=== PATIENT | male | born 1990 | race Caucasian/White ===

== ENCOUNTER 2018-04-05 17:04 | Emergency (ER) | payer OTHER ==
[~2018-04-05] VITALS: Ht 167.6 cm; Wt 104.3 kg
[2018-04-05 17:28] VITALS: BP 121/75
--- NOTE | 2018-04-05 20:16 | ED GENERAL ADULT ---
History of Present Illness General Chief Complaint: Laceration Procedure Stated Complaint: +LAC BETWEEN THUMB AND INDEX, NOT UTD TETANUS Source: patient Exam Limitations: no limitations Vital Signs & Intake/Output Vital Signs & Intake/Output Vital Signs Date Time Temp Pulse Resp B/P B/P Pulse O2 O2 Flow FiO2 Mean Ox Delivery Rate 04/05 1951 Room Air 04/05 1728 97.4 74 16 121/75 94 Room Air ED Intake and Output 04/06 0000 04/05 1200 Intake Total Output Total Balance Patient 230 lb Weight Weight Reported by Patient Measurement Method Allergies Coded Allergies: No Known Allergies (05/03/17) Reconcile Medications No Known Home Medications Triage Note: PT TO ED S/P CUTTING L HAND WITH KNIFE WHILE "BUTCHERING PIG" TETANUS NOT UP TO DATE. BANDAGE IN PLACE ON ARRIVAL TO TRIAGE WOUND NOT VISUALIZED. PER PATIENT "LACERATION IS BETWEEN THUMB AND INDEX FINGER. Triage Nurses Notes Reviewed? yes Onset: Abrupt Duration: hour(s): Timing: single episode today HPI: 27-year-old otherwise healthy male presenting with a laceration his left hand sustained 2-3 hours prior to arrival. Patient reports that he cut his hand with a knife while butchering a pig and a pig roast. Denies numbness or paresthesias. Unsure of his last tetanus. (Mery Gottlieb) Past History Travel History Traveled to [place] past 21 day No Medical History Any Pertinent Medical History? 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 No (Mery Gottlieb) Review of Systems Review of Systems Constitutional: Reports: no symptoms. EENTM: Reports: no symptoms. Respiratory: Reports: no symptoms. Cardiovascular: Reports: no symptoms. GI: Reports: no symptoms. Genitourinary: Reports: no symptoms. Musculoskeletal: Reports: no symptoms. Skin: Reports: see HPI. Neurological/Psychological: Reports: no symptoms. Hematologic/Endocrine: Reports: no symptoms. Immunologic/Allergic: Reports: no symptoms. All Other Systems: Reviewed and Negative (Mery Gottlieb) Physical Exam Physical Exam General Appearance: well developed/nourished, no apparent distress, alert, awake Comments: Gen.: Well-nourished, well-developed, no acute distress. Head: Normocephalic, atraumatic. Eyes: Normal inspection bilaterally Ears: Normal inspection bilaterally Nose: Normal inspection Neck: Normal inspection Lungs: clear to auscultation bilaterally, normnal breath sounds Heart: regular rate and rhythm Abdomen: soft and non-tender HAND: Left hand Inspection: Approximately 1 inch laceration to the webspace between the left thumb and left index finger Palpation: Tender palpation at the wound edges ROM: Unrestricted range of motion at all MCPs/PIPs/DIPs and IP joint Sensation: intact to median/radial/ulnar nerves Motor strength: 5/5 with digit flexion, extension, interosseous strength, and hand reheater strength Cap refill: <2 seconds Pulse: 2+ radial pulse Neurologic: alert and oriented x3, steady gait Skin: warm and dry Psychiatric: Normal mood and affect, no apparent delusions or hallucinations, behavior appropriate Core Measures ACS in differential dx? No CVA/TIA Diagnosis: No Sepsis Present: No Sepsis Focused Exam Completed? No (Mery Gottlieb) Progress Differential Diagnoses I considered the following diagnoses in my evaluation of the patient: [ Laceration versus foreign body, low concern for tendon injury versus nerve is vascular injury versus fracture] Plan of Care: Current Medications Sig/Clare Start time Last Medication Dose Stop Time Status Admin Lidocaine 20 ML ONCE ONE 04/05 2000 UNVr 04/05 (Lidocaine 1%) 04/05 Tetanus/Diphtheria 0.5 ML ONCE ONE 04/05 2000 UNVr 04/05 Toxoids Adsorbed 04/05 (Decavac) Wound repaired as described in the procedure note. Tetanus updated. Counseled on wound care and strict return precautions. Initial ED EKG: none (Mery Gottlieb) Departure Departure Disposition: HOME OR SELF CARE Condition: Stable Clinical Impression Primary Impression: Hand laceration Referrals: Unknown (PCP/Family) Additional Instructions: Keep the wound clean and dry. The Steri-Strips will gradually fall off in the next 7-10 days. Do not pick at them. Return to the emergency department 7 days for suture removal. Return to the emergency department sooner for any new or worsening symptoms. Departure Forms: Customer Survey General Discharge Information Prescriptions: Current Visit Scripts No Known Home Medications (Mery Gottlieb) PA/FILTER PRESS SUPERVISOR Co-Sign Statement Statement: ED Attending supervision documentation- I saw and evaluated the patient. I have also reviewed all the pertinent lab results and diagnostic results. I agree with the findings and the plan of care as documented in the PA's/FILTER PRESS SUPERVISOR's documentation. x I have reviewed the ED Record and agree with the PA's/FILTER PRESS SUPERVISOR's documentation. [] Additions or exceptions (if any) to the PAs/FILTER PRESS SUPERVISOR's note and plan are summarized below: [] (Gloria LINDSAY,Carlo) Procedures Laceration/Wound Repair Laceration/Wound Repair: Wound Location: head (right ), right hand Wound's Depth, Shape: linear Wound Length (cm): 2 Wound Explored: clean, no foreign body removed Irrigated w/ Saline (ccs): 180 Betadine Prep? Yes Anesthesia: 1% lidocaine Wound Repaired With: sutures, Steri-strips (2 ) Suture Size/Type: 6:0, nylon Number of Sutures: 4 Date of Last Tetanus: 04/05/18 (Mery Gottlieb) Critical Care Note Critical Care Note Critical Care Time: non-applicable (Mery Gottlieb)
== END 2018-04-05 20:17 ==
LOC: ERH 17:04
DX: S61.412A Laceration without foreign body of left hand, initial encounter (principal); W26.0XXA Contact with knife, initial encounter; Y93.G1 Activity, food preparation and clean up; Y92.9 Unspecified place or not applicable
CPT/HCPCS: 90471; 90714; J2001